=== PATIENT | female | born 2000 | race Two or more races ===

== ENCOUNTER 2022-03-18 22:58 | Emergency (ER) | payer MEDICAID ==
[~2022-03-18] VITALS: Ht 170.2 cm; Wt 59.9 kg
[2022-03-18 23:33] VITALS: BP 113/55
[2022-03-19 04:19] LABS: CLARITY URINE CLOUDY (CLEAR); COLOR URINE YELLOW (YELLOW); KETONES URINE TRACE (NEGATIVE); LEUKOCYTE ESTERASE URINE 2+ (NEGATIVE); NITRITE URINE NEGATIVE (NEGATIVE); OCCULT BLOOD URINE 3+ (NEGATIVE); PH URINE 5.5 (4.5-8.0); PROTEIN URINE 2+ (NEGATIVE); SPECIFIC GRAVITY URINE 1.033 (1.005-1.030)
[2022-03-19] MEDS ORDERED: SULF1TAB48 MT (06:28)
[2022-03-19] MEDS ORDERED: CLAR10 PO (06:28)
[2022-03-19] MEDS ORDERED: NAPR-681 PO (06:28)
[2022-03-19] MEDS ORDERED: METR70GE5 VG (06:28)
[2022-03-21 05:07] LABS: NEISSERIA GONORRHOEAE NAA Positive (Negative)
== END 2022-03-19 07:04 | disposition home or self-care (01) ==
LOC: ER 22:58
DX: N76.0 Acute vaginitis (principal); N39.0 Urinary tract infection, site not specified
CPT/HCPCS: 81003; 81025; 87086; 87210; 87491; 87591; 99284; Z7610; 99283

== ENCOUNTER 2022-08-19 01:58 | Emergency (ER) | payer MEDICAID ==
[~2022-08-19] VITALS: Ht 170.2 cm; Wt 54.0 kg
[~2022-08-19 01:58] MED LIST: CLAR10 PO; METR70GE5 VG; NAPR-681 PO; SULF1TAB48 MT
[2022-08-19] MEDS ORDERED: METH-653 MT (05:22)
[2022-08-19] MEDS ORDERED: IBUP-2029 MT (05:22)
[2022-08-19 05:35] VITALS: BP 118/74
== END 2022-08-19 05:43 | disposition home or self-care (01) ==
LOC: ER 01:58
DX: S29.011A Strain of muscle and tendon of front wall of thorax, initial encounter (principal); Y08.89XA Assault by other specified means, initial encounter; Y93.9 Activity, unspecified; Y92.9 Unspecified place or not applicable; R16.0 Hepatomegaly, not elsewhere classified; Z88.1 Allergy status to other antibiotic agents
CPT/HCPCS: 71101; 99283

== ENCOUNTER 2023-01-13 12:58 | Emergency (ER) | payer SELFPAY ==
[~2023-01-13] VITALS: Ht 170.2 cm; Wt 55.0 kg
[2023-01-13 12:58] VITALS: BP 117/77; RESP 20; TEMP 98.2; O2SAT 98
[~2023-01-13 12:58] MED LIST changes: +IBUP-2029 MT; +METH-653 MT
[2023-01-13 13:02] VITALS: PULSE 99
[2023-01-13] MEDS ORDERED: CEFTRIAXONE SODIUM 500 MG/VIAL IM ONE (13:30)
[2023-01-13] MEDS ORDERED: DOXY100C5 MT (13:36)
[2023-01-13 14:04] LABS: CLARITY URINE CLOUDY (CLEAR); COLOR URINE YELLOW (YELLOW); KETONES URINE NEGATIVE (NEGATIVE); LEUKOCYTE ESTERASE URINE NEGATIVE (NEGATIVE); NITRITE URINE NEGATIVE (NEGATIVE); OCCULT BLOOD URINE NEGATIVE (NEGATIVE); PROTEIN URINE NEGATIVE (NEGATIVE); SPECIFIC GRAVITY URINE 1.026 (1.005-1.030)
[2023-01-20 04:12] LABS: NEISSERIA GONORRHOEAE NAA Negative (Negative)
== END 2023-01-13 14:27 | disposition home or self-care (01) ==
LOC: ER 12:58
DX: A64 Unspecified sexually transmitted disease (principal); Z79.899 Other long term (current) drug therapy
CPT/HCPCS: 99283; 87491; 87591; 81003; 81025; 96372; J0696

== ENCOUNTER 2023-10-02 15:25 | Emergency (ER) | payer MEDICAID ==
[~2023-10-02] VITALS: Ht 170.2 cm; Wt 59.0 kg
[~2023-10-02 15:25] MED LIST changes: +DOXY100C5 MT
[2023-10-02 15:42] VITALS: O2SAT 100
[2023-10-02 18:09] VITALS: BP 101/61; PULSE 73; RESP 16; TEMP 97.7
== END 2023-10-02 18:12 | disposition home or self-care (01) ==
LOC: ER 15:25
DX: T19.2XXA Foreign body in vulva and vagina, initial encounter (principal); Z79.899 Other long term (current) drug therapy; X58.XXXA Exposure to other specified factors, initial encounter; Y93.89 Activity, other specified; Y92.89 Other specified places as the place of occurrence of the external cause; Y99.8 Other external cause status
CPT/HCPCS: 99281; Z7610

== ENCOUNTER 2024-04-16 03:52 | Emergency (ER) | payer MEDICAID ==
[~2024-04-16] VITALS: Ht 170.2 cm; Wt 55.0 kg
[~2024-04-16 03:52] MED LIST changes: +METR70GE27 VG; -METR70GE5 VG
[2024-04-16 03:59] VITALS: BP 124/71; PULSE 76; RESP 16; TEMP 97.8; O2SAT 100; O2SAT 99
[2024-04-16] MEDS: IBUPROFEN 400MG TABLET PO ONE (04:15)
[2024-04-16] MEDS: METOCLOPRAMIDE HCL 10MG/2ML VIAL IM ONE (04:15)
== END 2024-04-16 05:10 | disposition home or self-care (01) ==
LOC: ER 03:52
DX: R51.9 Headache, unspecified (principal); F12.10 Cannabis abuse, uncomplicated; F17.200 Nicotine dependence, unspecified, uncomplicated; Z88.1 Allergy status to other antibiotic agents; Z88.8 Allergy status to other drugs, medicaments and biological substances; Z79.899 Other long term (current) drug therapy
CPT/HCPCS: 99284; 70450; J2765